=== PATIENT | female | born 1990 | race Caucasian/White ===

== ENCOUNTER 2019-07-31 12:11 | Day surgery (SDC) | payer OTHER ==
[~2019-07-31 12:11] MED LIST: Lactated Ringers 1,000 ML IV SCH
--- NOTE | 2019-07-31 12:45 | PCM.PREANE ---
Preanesthetic Assessment - Anesthesia/Transfusion/Family Hx Anesthesia History: Prior Anesthesia Without Reaction Family History of Anesthesia Reaction: No Transfusion History: No Prior Transfusion(s) Intubation History: Unknown - Review of Systems General: No Symptoms Pulmonary: No Symptoms Cardiovascular: No Symptoms Gastrointestinal: No Symptoms Neurological: No Symptoms Other: Reports: None - Physical Assessment Height: 5 ft 1 in Weight: 59.421 kg ASA Class: 2 Mental Status: Alert & Oriented x3 Airway Class: Mallampati = 2 Dentition: Reports: Normal Dentition, Moulton(s) (x1 upper left (back)), Bridge ( upper left) Thyro-Mental Finger Breadths: 3 Mouth Opening Finger Breadths: 2 ROM/Head Extension: Full Lungs: Clear to Auscultation, Normal Respiratory Effort Cardiovascular: Regular Rate, Regular Rhythm - Lab Values: Laboratory Last Values WBC 7.12 K/uL (4.0-11.0) 07/31/19 12:30 RBC 4.33 M/uL (4.30-5.90) 07/31/19 12:30 Hgb 13.7 g/dL (12.0-16.0) 07/31/19 12:30 Hct 38.6 % (36.0-46.0) 07/31/19 12:30 MCV 89.1 fL (80.0-98.0) 07/31/19 12:30 MCH 31.6 pg (27.0-32.0) 07/31/19 12:30 MCHC 35.5 g/dL (31.0-37.0) 07/31/19 12:30 RDW Std Deviation 41.4 fl (28.0-62.0) 07/31/19 12:30 RDW Coeff of Colton 13 % (11.0-15.0) 07/31/19 12:30 Plt Count 218 K/uL (150-400) 07/31/19 12:30 MPV 11.00 fL (7.40-12.00) 07/31/19 12:30 Nucleated RBC % 0.0 /100WBC 07/31/19 12:30 Nucleated RBCs # 0 K/uL 07/31/19 12:30 - Allergies Allergies/Adverse Reactions: Allergies Allergy/AdvReac Type Severity Reaction Status Date / Time No Known Allergies Allergy Verified 07/27/19 09:57 - Blood Blood Available: No - Anesthesia Plan Pre-Op Medication Ordered: None - Acknowledgements Anesthesia Type Planned: General Anesthesia Pt an Appropriate Candidate for the Planned Anesthesia: Yes Alternatives and Risks of Anesthesia Discussed w Pt/Guardian: Yes Pt/Guardian Understands and Agrees with Anesthesia Plan: Yes PreAnesthesia Questionnaire HEENT History: Reports: None Cardiovascular History: Reports: None Respiratory History: Reports: None Gastrointestinal History: Reports: None Genitourinary History: Reports: None 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 She is placed on lovenox during . Immunologic History: Reports: None Oncologic (Cancer) History: Reports: None Dermatologic History: Reports: None - Past Surgical History Head Surgeries/Procedures: Reports: None HEENT Surgical History: Reports: Oral Surgery Cardiovascular Surgical History: Reports: None Respiratory Surgical History: Reports: None GI Surgical History: Reports: None Female Surgical History: Reports: D&C Endocrine Surgical History: Reports: None Neurological Surgical History: Reports: None Musculoskeletal Surgical History: Reports: None Oncologic Surgical History: Reports: None Dermatological Surgical History: Reports: None - SUBSTANCE USE Smoking Status *Q: Never Smoker Recreational Drug Use History: No - HOME MEDS Home Medications: Home Meds Enoxaparin [Lovenox] 30 mg SUBCUT Q24H #30 syringe 11/03/15 [Rx] Aspirin [Lo-Dose Aspirin EC] 81 mg PO DAILY 07/27/19 [History] Pnv No.95/Ferrous Fum/Folic AC [ Vitamin Tablet] 1 tab PO DAILY [History] - CURRENT (IN HOUSE) MEDS Current Meds: Current Medications Lactated Ringer's (Ringers, Lactated) 1,000 mls @ 125 mls/hr IV ASDIRECTED [facility]
[2019-07-31] MEDS ORDERED: fentaNYL 100 MCG/2 ML SDV ONE (13:11)
[2019-07-31] MEDS ORDERED: Midazolam 1 MG/ML 2 ML SDV ONE (13:11)
[2019-07-31] MEDS ORDERED: Propofol 200 MG/20 ML SDV ONE (13:11)
[2019-07-31] MEDS ORDERED: Rocuronium 100 MG/10 ML Syringe ONE (13:12)
[2019-07-31] MEDS ORDERED: Methylergonovine 0.2 MG/1 ML Amp ONE (13:39)
--- NOTE | 2019-07-31 14:06 | PCM.OPNOTE ---
- General Post-Op/Procedure Note Date of Surgery/Procedure: 07/31/19 Operative Procedure(s): suction dilatation and curettage Findings: preop uterus boggy 11 week size, postop uterus firm, anteverted 8 week size, minimal bleeding. Pre Op Diagnosis: 11 week missed Post-Op Diagnosis: Same Anesthesia Technique: General ET Tube Primary Surgeon: Cha Matta Anesthesia Provider: Alison Hadley Pathology: products of conception Fluid Replacement, Intraop: 900 Output, Urine Amount: 20 EBL in mLs: 250 Complications: None Known Condition: Good
[2019-07-31] MEDS ORDERED: ePHEDrine 50 MG/ML SDV ONE (14:17)
[2019-07-31 14:25] VITALS: PULSE 79
--- NOTE | 2019-07-31 14:31 | PCM.POSTAN ---
POST ANESTHESIA ASSESSMENT - MENTAL STATUS Mental Status: Alert, Oriented - VITAL SIGNS Vital Signs: Last Vital Signs Temp 37.3 C 07/31/19 13:58 Pulse 79 07/31/19 14:23 Resp 20 07/31/19 14:23 BP 108/53 L 07/31/19 14:23 Pulse Ox 98 07/31/19 14:23 - RESPIRATORY Respiratory Status: Respiratory Rate WNL, Airway Patent, O2 Saturation Stable - CARDIOVASCULAR CV Status: Pulse Rate WNL, Blood Pressure Stable - GASTROINTESTINAL GI Status: No Symptoms - PAIN Pain Score: 0 - POST OP HYDRATION Hydration Status: Adequate & Stable - OBSERVATIONS Free Text/Narrative:: No anesthesia problems
--- NOTE | 2019-07-31 15:29 | OR ---
SURGEON: Cha Matta M.D. DATE OF PROCEDURE: 07/31/2019 PREOPERATIVE DIAGNOSIS: An 11-week missed . POSTOPERATIVE DIAGNOSIS: An 11-week missed . PROCEDURE: Suction, dilatation, and curettage. PRIMARY SURGEON: Cha Matta MD. ANESTHESIA: General endotracheal. FLUIDS: 900 mL of crystalloid. ESTIMATED BLOOD LOSS: 250 mL. FINDINGS: Preoperatively; uterus anteverted, 11-week size, boggy. Postoperatively; uterus anteverted, 8-week size, firm with minimal bleeding. COMPLICATIONS: None known. PATHOLOGY SPECIMEN: Products of conception. DISPOSITION: Stable to recovery. BRIEF HISTORY: This is a 28-year-old female. She is G6, P 2-0-3-2. She presented for routine visit, 12-1/2 weeks' gestation. Due to antiphospholipid syndrome, she has been on Lovenox and baby aspirin. Ultrasound revealed 11-week intrauterine with no cardiac activity. She has not had any bleeding or pain with her most recent miscarriage. She received Cytotec, which resulted in extensive amount of bleeding at home, requiring an ambulance trip to the emergency room. Therefore, she desires to proceed with suction, dilatation, and curettage with risks discussed including bleeding, infection, uterine perforation with injury to surrounding organs, risk of Asherman syndrome, and risk of anesthesia. Understanding all these risks, she does desire to proceed. DESCRIPTION OF PROCEDURE: With the patient in dorsal lithotomy position and adequate general endotracheal anesthesia, the perineum and vagina were prepped with Betadine and draped in the usual fashion for vaginal surgery. SCDs were in place. The bladder had been drained and an appropriate time-out was held. Bimanual examination was performed with findings as noted above. Speculum was placed in the vagina. The anterior lip of the cervix was grasped with an Allis clamp. The uterus was sounded to 11 cm and was dilated to an 11 mm Hegar dilator. The 11 mm straight suction curette was placed to the uterine fundus with documentation of pressure in the green zone. The uterine curette was then repetitively turned and removed, taking approximately 6 passes with no further tissue obtained. Minimal blood obtained. Sharp curettage was performed in the 12, 3, 6, and 9 o'clock position. A good uterine cry was felt. There was no additional tissue obtained. One additional pass was taken with the uterine curette, with suction curette, and no further tissue was obtained. All the instruments removed from the vagina. The cervix was firm. The uterus was firm, anteverted, 8-week size, and there was minimal bleeding. Final sponge, needle, and instrument counts were reported as correct. There were no known complications. The patient was transferred to recovery in good condition. BEE / GUZMAN /[id number]
[2019-07-31 15:31] VITALS: BP 117/60
--- NOTE | 2019-07-31 15:36 | PCM48HPAN ---
Post Anesthesia Note - EVALUATION WITHIN 48HRS OF ANESTHETIC Vital Signs in Normal Range: Yes Patient Participated in Evaluation: Yes Respiratory Function Stable: Yes Airway Patent: Yes Cardiovascular Function Stable: Yes Hydration Status Stable: Yes Pain Control Satisfactory: Yes Nausea and Vomiting Control Satisfactory: Yes Mental Status Recovered: Yes Vital Signs: Last Vital Signs Temp 36.3 C 07/31/19 14:30 Pulse 79 07/31/19 14:50 Resp 18 07/31/19 14:50 BP 117/60 07/31/19 14:50 Pulse Ox 99 07/31/19 14:50 - COMMENTS/OBSERVATIONS Free Text/Narrative:: Dressed and ready to go home. .
== END 2019-07-31 15:21 | disposition home or self-care (01) ==
LOC: MW.SDS 12:11
PROVIDERS: ATTEND Obstetrics & Gynecology
DX: O02.1 Missed abortion (principal); D68.61 Antiphospholipid syndrome; Z79.82 Long term (current) use of aspirin; Z79.899 Other long term (current) drug therapy
CPT/HCPCS: 36415; 59820; 85027; 86850; 86900; 86901; 88305; J0330; J2250; J2704; J3010; J7120; 01965; J2210

== ENCOUNTER 2020-02-09 11:02 | Emergency (ER) | payer BC, OTHER ==
--- NOTE | 2020-02-09 11:19 | EDM.PDOC ---
ED [facility] GENERAL MEDICAL PROBLEM - General Chief Complaint: Chest Pain Stated Complaint: CHEST PAIN Time Seen by Provider: 02/09/20 11:03 - History of Present Illness INITIAL COMMENTS - FREE TEXT/NARRATIVE: HISTORY AND PHYSICAL: History of present illness: This 37-year-old female with a past medical history of being multi parous, antiphospholipid antibody, presents to the emergency department with a sudden onset of chest pain at 6 AM today. It is worse with movement and better with rest. She denies any recent travel or smoking. No unilateral leg swelling or tenderness. The patient denies any hemoptysis, infectious symptoms, smoking, and uses a copper IUD for her control method. She denies any vomiting or diaphoresis with onset. No radiation of pain. It is anterior bilateral and worse with palpation movement. She feels heavy all over and feels like it is difficult to move her body in general. No family history of myocardial infarction, blood clot in the lung, DVT, or sudden . No other associated signs or symptoms. No other modifying, aggravating or alleviating factors. Review of systems: A 10-point review of systems, other than pertinent positives and negatives as stated per HPI, is otherwise negative. Past medical history: As per history of present illness and as reviewed below otherwise noncontributory. Surgical history: As per history of present illness and as reviewed below otherwise noncontributory. Social history: No reported history of drug or alcohol abuse. Family history: As per history of present illness and as reviewed below otherwise noncontributory. Physical exam: VITAL SIGNS: Reviewed. GENERAL: Appears anxious about her condition but in no apparent distress. HEAD: No signs of head trauma. EYES: Pupils are equal. Extraocular motions intact. EARS: Hearing grossly intact. MOUTH: Oropharynx is normal. NECK: No adenopathy, no JVD. CHEST: Chest with clear breath sounds bilaterally. No wheezes, rales, or rhonchi. CARDIAC: Regular rate and rhythm. Normal S1 and S2, without murmurs, gallops, or rubs. VASCULAR: Peripheral pulses normal and equal in all extremities. ABDOMEN: Soft, without detectable tenderness. No sign of distention. No rebound or guarding, and no masses palpated. MUSCULOSKELETAL: Good range of motion of all major joints. Extremities without clubbing, cyanosis or edema. NEUROLOGIC EXAM: Alert and oriented x 3. No focal sensory or motor deficits. Speech normal. Follows commands. PSYCHIATRIC: Mood normal. SKIN: No rash or lesions. Initial Differential Diagnosis & Plan: Differential diagnosis includes acute myocardial infarction, pulmonary embolism , aortic dissection, pneumothorax, and esophageal rupture. Cardiac enzymes and EKG will be done for the possibility of myocardial infarction as well as pericarditis and myocarditis. Chest x-ray will be done to screen for pneumonia or pneumothorax. Pulmonary embolism risk factors were queried and the patient has no personal history, family history, cancer, calf tenderness, swelling, tobacco use, immunocompromise status. She does have antiphospholipid antibody and therefore I do not feel comfortable using PERC criteria for rule out. I will obtain a d- dimer. Additionally we will obtain chest x-ray, EKG, labs, and give symptomatic relief. Definitive disposition and diagnosis as appropriate pending reevaluation and review of above. 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 She is placed on lovenox during . Immunologic History: Reports: None Oncologic (Cancer) History: Reports: None Dermatologic History: Reports: None - Past Surgical History Head Surgeries/Procedures: Reports: None HEENT Surgical History: Reports: Oral Surgery Cardiovascular Surgical History: Reports: None Respiratory Surgical History: Reports: None GI Surgical History: Reports: None Female Surgical History: Reports: D&C Endocrine Surgical History: Reports: None Neurological Surgical History: Reports: None Musculoskeletal Surgical History: Reports: None Oncologic Surgical History: Reports: None Dermatological Surgical History: Reports: None Social & Family History - Family History Respiratory: Reports: Asthma OBGYN: Reports: ED ROS GENERAL - Review of Systems Review Of Systems: Comprehensive ROS is negative, except as noted in HPI. (noted ) ED EXAM, GENERAL - Physical Exam Exam: See Below (noted) Reason Not Obtained: above Free Text/Narrative:: please see my note EKG INTERPRETATION EKG Interpretation Comments: 12 lead EKG interpretation Obtained: February 09, 2020 at 11:20 AM Rhythm: Sinus Rate: 70 [place]: Normal Intervals: Normal ST/T Segments: No acute ischemic changes Interpretation: Sinus Rhythm Course - Vital Signs Text/Narrative:: 12:47 PM the patient is feeling like her symptoms are resolved. She is relieved that her work-up is normal. I do not feel that she needs serial troponin exam. We will give information for follow-up. Last Recorded V/S: Last Vital Signs Temp 97.7 F 02/09/20 11:11 Pulse 70 02/09/20 11:11 Resp 18 02/09/20 11:11 BP 143/73 H 02/09/20 11:11 Pulse Ox 99 02/09/20 11:11 - Orders/Labs/Meds Orders: Active Orders 24 hr Category Date Time Status UA RFX JOHNATHAN AND CULT IF INDIC [URIN] Stat Lab 02/09/20 11:20 Ordered Labs: Laboratory Tests 02/09/20 02/09/20 02/09/20 Range/Units 11:25 11:25 11:25 WBC 3.55 L (4.0-11.0) K/uL RBC 4.44 (4.30-5.90) M/uL Hgb 13.6 (12.0-16.0) g/dL Hct 39.7 (36.0-46.0) % MCV 89.4 (80.0-98.0) fL MCH 30.6 (27.0-32.0) pg MCHC 34.3 (31.0-37.0) g/dL RDW Std Deviation 39.5 (28.0-62.0) fl RDW Coeff of Colton 12 (11.0-15.0) % Plt Count 239 (150-400) K/uL MPV 11.10 (7.40-12.00) fL Neut % (Auto) 53.4 (48.0-80.0) % Lymph % (Auto) 38.9 (16.0-40.0) % Murray % (Auto) 5.4 (0.0-15.0) % Eos % (Auto) 2.0 (0.0-7.0) % Baso % (Auto) 0.3 (0.0-1.5) % Neut # (Auto) 1.9 (1.4-5.7) K/uL Lymph # (Auto) 1.4 (0.6-2.4) K/uL Murray # (Auto) 0.2 (0.0-0.8) K/uL Eos # (Auto) 0.1 (0.0-0.7) K/uL Baso # (Auto) 0.0 (0.0-0.1) K/uL Nucleated RBC % 0.0 /100WBC Nucleated RBCs # 0 K/uL D-Dimer, Quantitative 0.20 (0.0-0.50) mg/L FEU Sodium 141 (136-145) mmol/L Potassium 3.7 (3.5-5.1) mmol/L Chloride 105 (98-107) mmol/L Carbon Dioxide 29.0 (21.0-32.0) mmol/L BUN 11 (7.0-18.0) mg/dL Creatinine 0.8 (0.6-1.0) mg/dL Est Cr Clr Drug Dosing 73.86 mL/min Estimated GFR (MDRD) > 60.0 ml/min Glucose 104 (74-106) mg/dL Calcium 8.7 (8.5-10.1) mg/dL Total Bilirubin 0.5 (0.2-1.0) mg/dL AST 21 (15-37) IU/L ALT 25 (14-63) IU/L Alkaline Phosphatase 36 L (46-116) U/L Troponin I < 0.050 (0.000-0.056) ng/mL Total Protein 7.5 (6.4-8.2) g/dL Albumin 4.3 (3.4-5.0) g/dL Globulin 3.2 (2.6-4.0) g/dL Albumin/Globulin Ratio 1.3 (0.9-1.6) HCG, Quant < 1.0 mIU/mL Meds: Medications Discontinued Medications Generic Name Dose Route Start Last Admin Trade Name Camronq PRN Reason Stop Dose Admin Diazepam 2 mg 02/09/20 11:20 02/09/20 11:32 Valium PO 02/09/20 11:21 2 mg ONETIME ONE Administration Sodium Chloride 1,000 mls @ 2,000 mls/hr 02/09/20 11:23 02/09/20 11:28 Normal Saline IV 02/09/20 11:52 2,000 mls/hr .Bolus ONE Administration Ketorolac Tromethamine 15 mg 02/09/20 11:21 02/09/20 11:32 Toradol IVPUSH 02/09/20 11:22 15 mg ONETIME ONE Administration - Re-Assessments/Exams Free Text/Narrative Re-Assessment/Exam: 02/09/20 11:33 The EKG does not have high risk features for PE namely: There is no Sinus tachycardia Complete or incomplete right bundle-branch block Right ventricular strain pattern Right axis deviation Dominant R-Wave in V1 Right atrial enlargement (P pulmonale) S1 Q3 T3 Clockwise rotation Atrial tachyarrhythmias Nonspecific ST-T segment and T-wave changes Simultaneous T-wave inversions in the inferior and right precordial leads This represents essentially a normal EKG. 02/09/20 11:35 Departure - Departure Time of Disposition: 12:48 Disposition: Home, Self-Care 01 Clinical Impression: Pleuritic chest pain Referrals: PCP,None [Primary Care Provider] - Forms: ED Department Discharge, ED Summary Discharge Additional Instructions: The following information is given to patients seen in the emergency department who are being discharged to home. This information is to outline your options for follow-up care. We provide all patients seen in our emergency department with a follow-up referral. The need for follow-up, as well as the timing and circumstances, are variable depending upon the specifics of your emergency department visit. If you don't have a primary care physician on staff, we will provide you with a referral. We always advise you to contact your personal physician following an emergency department visit to inform them of the circumstance of the visit and for follow-up with them and/or the need for any referrals to a consulting specialist. The emergency department will also refer you to a specialist when appropriate. This referral assures that you have the opportunity for follow-up care with a specialist. All of these measure are taken in an effort to provide you with optimal care, which includes your follow-up. Under all circumstances we always encourage you to contact your private physician who remains a resource for coordinating your care. When calling for follow-up care, please make the office aware that this follow-up is from your recent emergency room visit. If for any reason you are refused follow-up, please contact the [facility] Emergency Department at and asked to speak to the emergency department charge nurse. Thank you for trusting us with your care today at [facility]. Your laboratory findings, chest x-ray and EKG are normal. Please return the emergency department for worsening, shortness of breath, continued chest pain or any other concerns. We are always happy to see you. Care Plan Goals: Please see your doctor for referral to cardiology. Sepsis Event Note - Focused Exam Vital Signs: Vital Signs Temp Pulse Resp BP Pulse Ox 02/09/20 11:11 97.7 F 70 18 143/73 H 99 Date Exam was Performed: 02/09/20 Time Exam was Performed: 12:47 - My Orders Last 24 Hours: My Active Orders 02/09/20 11:20 UA RFX JOHNATHAN AND CULT IF INDIC [URIN] Stat - Assessment/Plan Last 24 Hours: My Active Orders 02/09/20 11:20 UA RFX JOHNATHAN AND CULT IF INDIC [URIN] Stat
[2020-02-09] MEDS ORDERED: Diazepam 2 MG Tab PO ONE (11:20)
[2020-02-09] MEDS ORDERED: Ketorolac 15 MG/ML SDV IVPUSH ONE (11:21)
[2020-02-09] MEDS ORDERED: Sodium Chloride 0.9% 1,000 ML IV ONE (11:23)
[2020-02-09 11:58] LABS: BLOOD UREA NITROGEN,BUN 11 mg/dL (7.0-18.0); CHLORIDE,CL 105 mmol/L (98-107); GLUCOSE RANDOM 104 mg/dL (74-106); POTASSIUM,K 3.7 mmol/L (3.5-5.1); SODIUM,NA 141 mmol/L (136-145)
--- NOTE | 2020-02-09 12:43 | CR ---
INDICATION: Atypical chest pain TECHNIQUE: Single view chest. FINDINGS: The lungs are clear. The heart, mediastinum and pulmonary vessels are of normal size. There is no evidence of pleural disease. IMPRESSION: Negative chest. Dictated by Rosy Granda MD @ Feb 09 2020 12:41PM Signed by Dr. Rosy Granda @ Feb 09 2020 12:41PM
[2020-02-09 13:55] VITALS: BP 103/64; PULSE 72
== END 2020-02-09 13:17 | disposition home or self-care (01) ==
LOC: MW.ED 11:02
DX: R07.81 Pleurodynia (principal)
CPT/HCPCS: 36415; 71045; 80053; 84484; 84702; 85025; 85379; 93005; 96374; 99285; A9270; J1885; J7030; 99283

== ENCOUNTER 2023-08-17 19:09 | Emergency (ER) | payer BC ==
[2023-08-17 23:56] VITALS: BP 121/64; PULSE 85
== END 2023-08-17 23:56 | disposition home or self-care (01) ==
LOC: MW.ED 19:09
DX: M79.604 Pain in right leg (principal)
CPT/HCPCS: 93971-26-RT; 93971-RT; 99282; 99283

== ENCOUNTER 2023-11-28 13:19 | Emergency (ER) | payer BC ==
[2023-11-28 13:39] LABS: BASOPHILS ABSOLUTE AUTO 0.05 K/uL (0.00-0.20); EOSINOPHILS ABSOLUTE AUTO 0.12 K/uL (0.00-0.45); EOSINOPHILS PERCENT AUTO 2.3 % (0.0-6.0); HEMATOCRIT 39.2 % (37.0-47.0); HEMOGLOBIN 13.7 g/dL (12.0-16.0); IMMATURE GRAN ABSOLUTE AUTO 0.01 K/uL (0.00-0.05); IMMATURE GRAN PERCENT AUTO 0.2 % (0.0-0.4); LYMPHOCYTES ABSOLUTE AUTO 1.73 K/uL (1.00-4.80); LYMPHOCYTES PERCENT AUTO 33.2 % (24.0-44.0); MEAN CORPUSCULAR HEMOGLOBIN 31.3 pg (28.0-32.0); MEAN CORPUSCULAR HGB CONC 34.9 g/dL (32.0-36.0); MEAN CORPUSCULAR VOLUME 89.5 fL (83.0-99.0); MEAN PLATELET VOLUME 11.1 fL (9.4-12.3); MONOCYTES ABSOLUTE AUTO 0.34 K/uL (0.00-0.80); MONOCYTES PERCENT AUTO 6.5 % (0.0-8.0); NEUTROPHILS ABSOLUTE AUTO 2.96 K/uL (1.80-7.70); NEUTROPHILS PERCENT AUTO 56.8 % (41.0-71.0); PLATELET COUNT,PLT 221 K/uL (150-400); RED BLOOD CELL COUNT 4.38 M/uL (4.10-5.30); WHITE BLOOD CELL COUNT,WBC 5.21 K/uL (3.9-11.3)
[2023-11-28] MEDS: Iopamidol 755 MG/ML 500 ML Multipack Bottle IVPUSH STA (13:40)
[2023-11-28 14:16] LABS: A/G RATIO 1.2 (0.9-1.6); ALBUMIN 4.2 g/dL (3.4-5.0); BILIRUBIN TOTAL 0.3 mg/dL (0.2-1.0); CALCIUM 9.3 mg/dL (8.5-10.1); CARBON DIOXIDE,CO2 25.8 mmol/L (21.0-32.0); CREATININE 0.7 mg/dL (0.6-1.0); EST CRCL DRUG DOSING (CG) 81.34 mL/min; MAGNESIUM 1.9 mg/dL (1.8-2.4); POTASSIUM,K 3.4 mmol/L (3.5-5.1); PROTEIN TOTAL,TP 7.7 g/dL (6.4-8.2); TSH ULTRASENSITIVE 2.92 uIU/mL (0.36-3.74)
[2023-11-28 14:36] LABS: INR 1.04 (0.86-1.11); PTT,PARTIAL THROMBOPLSTIN TIME 26.6 SEC (23.9-30.7)
[2023-11-28 17:31] VITALS: BP 116/72; PULSE 78
== END 2023-11-28 15:08 | disposition home or self-care (01) ==
LOC: MW.ED 13:19
DX: G43.909 Migraine, unspecified, not intractable, without status migrainosus (principal); Z75.8 Other problems related to medical facilities and other health care
CPT/HCPCS: 36415; 70450; 70496; 70498; 70551; 80053; 82947; 83735; 84443; 84484; 84703; 85025; 85610; 85730; 93005; 99285; Q9967; 93010; 99284